=== PATIENT | male | born 1985 | race Caucasian/White ===

== ENCOUNTER 2018-08-27 21:55 | Emergency (ER) | payer SELFPAY ==
[~2018-08-27] VITALS: Ht 172.7 cm; Wt 97.5 kg
[~2018-08-27 21:55] MED LIST: AMOXICILLI400 MG/51 PO; CLEOCIN150 MG PO; HYDROCODONE BIT1 T11 PO; MOTRIN800 MG PO; PEN-VEE K500 MG PO; ULTRAM50 MG PO
[2018-08-27] MEDS ORDERED: AMOXICILLIN500 M2 PO (23:30)
== END 2018-08-27 23:45 | disposition home or self-care (01) ==
LOC: ED 21:55
DX: J02.0 Streptococcal pharyngitis (principal)

== ENCOUNTER 2019-06-20 19:33 | Emergency (ER) | payer OTHER ==
[~2019-06-20] VITALS: Ht 172.7 cm; Wt 90.7 kg
[~2019-06-20 19:33] MED LIST changes: +AMOXICILLIN500 M2 PO
[2019-06-20] MEDS ORDERED: AMOXICILLIN500 M2 PO (22:44)
== END 2019-06-21 02:59 | disposition home or self-care (01) ==
LOC: ED 19:33
DX: R50.9 Fever, unspecified (principal); J02.9 Acute pharyngitis, unspecified; K21.9 Gastro-esophageal reflux disease without esophagitis; F17.200 Nicotine dependence, unspecified, uncomplicated; Z79.2 Long term (current) use of antibiotics